=== PATIENT | female | born 1960 | race Asian ===

== ENCOUNTER 2019-07-25 08:05 | Day surgery (SDC) | payer BC ==
[2019-07-25] MEDS ORDERED: methylPREDNISolone ACETATE 80 MG/ML VIAL ONE ×2 (09:40→10:21)
[2019-07-25] MEDS ORDERED: BUPIVACAINE 0.5 % PF 150 MG/30 ML VIAL ONE (09:40)
[2019-07-25] MEDS ORDERED: LIDOCAINE HCL/PF 1% 30 ML SDV ONE (09:40)
== END 2019-07-25 12:30 | disposition home or self-care (01) ==
LOC: DS 08:05
PROVIDERS: ATTEND Specialist
DX: M53.87 Other specified dorsopathies, lumbosacral region (principal); M54.5 Low back pain; Z88.2 Allergy status to sulfonamides; Z79.899 Other long term (current) drug therapy
CPT/HCPCS: 64493; 64494 ×2; 72020; J1040 ×2; J3490 ×2